=== PATIENT | male | born 1995 | race African-American/Black ===

== ENCOUNTER 2020-07-16 15:10 | Emergency (ER) | payer OTHER, SELFPAY ==
[~2020-07-16 15:10] MED LIST: Haloperidol Lactate 5 MG/ML VIAL ONE
[2020-07-16] MEDS ORDERED: Lorazepam 2 MG/ML VIAL ONE (15:11)
[2020-07-16 15:40] LABS: #Eosinphils 0.1 10x3/uL (0.0-0.5); #Monocytes 0.5 10x3/uL (0.0-1.1); #Neutrophils 2.2 10x3/uL (1.5-8.4); %Basophils 0.2 % (0.0-2.0); %Eosinophils 1.6 % (0.0-6.0); %Monocytes 9.3 % (0.0-10.0); %Neutrophils 45.5 % (40.0-75.0); Hemoglobin 14.9 g/dL (13.5-17.5); Mean Corpuscular Hemoglobin 31.7 pg (27.0-33.0); Mean Corpuscular Volume 93.2 fl (81.2-95.1); Mean Platelet Volume 10.1 fl (7.4-10.4); Platelet Count 208 10x3/uL (150-450); White Blood Cell (WBC) Count 4.9 10x3/uL (3.5-10.5)
[2020-07-16 15:59] LABS: Acetaminophen Less than 6.0 mcg/mL (10.0-30.0); Alcohol 47 mg/dL (Less than 10); CK (CPK) 590 U/L (30-200); Salicylate Less than 8.0 mg/dL (15.0-30.0)
[2020-07-16 16:00] LABS: ALT (SGPT) 25 U/L (8-55); AST (SGOT) 35 U/L (5-34); Albumin 4.2 g/dL (3.5-5.0); Alkaline Phosphatase 72 U/L (40-110); Anion Gap 15 mmol/L (10-20); BUN (Urea Nitrogen) 17 mg/dL (8.9-20.6); Bilirubin, Total 0.6 mg/dL (0.2-1.2); Calc. Creatinine Clearance 0 mL/min (70-130); Calcium 9.2 mg/dL (7.8-10.44); Carbon Dioxide 23 mmol/L (22-29); Globulin 2.7 g/dL (2.4-3.5); Glucose 72 mg/dL (70-105); Potassium 3.7 mmol/L (3.5-5.1); Protein, Total 6.9 g/dL (6.0-8.3); Sodium 138 mmol/L (136-145)
[2020-07-16 16:03] LABS: Chloride 104 mmol/L (98-107)
[2020-07-16 17:38] LABS: Amphetamine Not Detected (NotDetected); Barbiturates Screen Not Detected (NotDetected); Benzodiazepine Screen Not Detected (NotDetected); Cocaine Metabolite Screen Not Detected (NotDetected); Methadone Not Detected (NotDetected); Methamphetamine Not Detected (NotDetected); Opiate Screen Not Detected (NotDetected); Oxycodone Screen Not Detected (NotDetected); Phencyclidine (PCP) Not Detected (NotDetected); THC/Cannabinoid Screen Detected (NotDetected); Tricyclic Screen Not Detected (NotDetected)
[2020-07-17] MEDS ORDERED: Sterile Water 10 ML ONE (07:18)
[2020-07-17] MEDS ORDERED: Ziprasidone 20 MG VIAL ONE (07:19)
[2020-07-17] MEDS ORDERED: Lorazepam 1 MG TAB ONE (11:53)
== END 2020-07-17 12:59 ==
LOC: CSHERS 15:10
DX: F30.9 Manic episode, unspecified (principal); F17.210 Nicotine dependence, cigarettes, uncomplicated
CPT/HCPCS: 80053; 80306; 80307; 82550; 84443; 85025; 93005; 96372; 96374; 96375; J1630; J2060; J3486